=== PATIENT | female | born 1935 | race Two or more races ===

== ENCOUNTER → 2017-05-10 | Outpatient (CLI) | payer MEDICARE ==
--- NOTE | 2017-05-10 11:52 | ECHOS ---
STRESS ECHOCARDIOGRAM DATE OF SERVICE: 05/10/2017 MEDICATIONS:: Aspirin, Synthroid, BASELINE HEART RATE: 97 BASELINE BLOOD PRESSURE: 158/84 MAXIMUM HEART RATE: 130 MAXIMUM BLOOD PRESSURE: 185/72 85% MPHR: 119 100% MPHR: 140 METS: 7.0 MAXIMUM STAGE REACHED: II TOTAL EXERCISE TIME: 5 minutes INDICATIONS: CLINICAL INFORMATION: Patient was exercised for a total period of 5 minutes. A peak heart rate of 130 was achieved, maximum blood pressure of 185/72 mmHg was noted. The resting EKG shows normal sinus rhythm with normal VT interval and QRS duration and normal ST-T waves. No ST-segment depression suggestive of ischemia is noted. The baseline echocardiographic images reveal normal left ventricular chamber size with normal left ventricular systolic function. In the immediate postexercise period, normal increase in the wall thickness and contractility is noted. FINAL IMPRESSION: This stress echocardiographic study is negative for stress-induced ischemia. Patient's exercise tolerance is average. No dysrhythmias are noted. MMODL / IJN: [id number] /
== END | disposition home or self-care (01) ==
LOC: RADNMMAIN 09:44
PROVIDERS: ATTEND Family Medicine
DX: R07.2 Precordial pain (principal)
CPT/HCPCS: 93017; 93350